=== PATIENT | female | born 1975 | race Native Hawaiian/Other Pacific Islander ===

== ENCOUNTER 2019-10-17 11:30 | Emergency (ER) | payer OTHER ==
[~2019-10-17] VITALS: Ht 165.1 cm; Wt 65.8 kg
[~2019-10-17 11:30] MED LIST: ADIPEX PO; ESTRACE2 MG PO; HYDR25TA60 PO
[2019-10-17 11:38] VITALS: TEMP 97.7
[2019-10-17 14:27] LABS: PLATELET COUNT 331 K/uL (152-353)
[2019-10-17 14:42] LABS: POTASSIUM 3.8 mmol/L (3.6-5.2); SODIUM 138 mmol/L (136-145)
[2019-10-17 16:00] VITALS: BP 134/85
== END 2019-10-17 16:00 | disposition home or self-care (01) ==
LOC: ED 11:30
PROVIDERS: Family Medicine
DX: J06.9 Acute upper respiratory infection, unspecified (principal); R05 Cough; R07.89 Other chest pain; Z03.818 Encounter for observation for suspected exposure to other biological agents ruled out
CPT/HCPCS: 80053; 82550; 84484; 85027; 87502; 87635; 87651; 93005; 99283; U0002